=== PATIENT | female | born 1960 ===

== ENCOUNTER 2020-09-08 09:38 | Emergency (ER) | payer MEDICAID, SELFPAY ==
--- NOTE | 2020-09-08 | CT_ITS ---
EXAMINATION: CT ABDOMEN AND PELVIS WITHOUT CONTRAST CLINICAL INFORMATION: Left-sided back and flank pain. Evaluate for mass, stones, fracture. COMPARISON: None TECHNIQUE: Multidetector volumetric imaging was performed from the superior aspect of the liver through the pubic symphysis. Sagittal and coronal reformatted images were obtained on the technologist's workstation. This CT examination was performed using dose optimization techniques as appropriate, variously including the following: *Automated exposure control *Adjustment of mA and/or kV according to patient size (this includes techniques or standardized protocols for targeted exams where dose is matched to indication/reason for exam; i.e. extremities or head) *Use of iterative reconstruction technique DLP: 286 mGy-cm FINDINGS: LUNG BASES: Mild cylindrical bronchiectasis in the visualized lower lobes. There are mild centrilobular groundglass opacities (i.e., mild inflammatory changes) in the the visualized bases. No pleural effusion. There appears to be an old calcified granuloma in the lateral right lower lobe. LIVER: The liver has normal size, shape, and attenuation. GALLBLADDER AND BILIARY TREE: No abnormalities. No radiopaque gallstones, wall thickening or pericholecystic fluid. No bile duct dilatation. PANCREAS: Unremarkable. SPLEEN: Unremarkable. ADRENAL GLANDS: Unremarkable. KIDNEYS AND URETERS: The kidneys are normal in size. No hydroureteronephrosis, urolithiasis or perinephric edema. No evidence of renal mass. BOWEL AND PERITONEUM: Stomach is unremarkable. No dilated loops of bowel. The appendix is is not identified. However, no inflammatory changes in the right lower quadrant. No overt bowel wall thickening or mesenteric fat stranding. No ascites or pneumoperitoneum. ABDOMINAL WALL: Unremarkable. LYMPH NODES: No pathologic sized lymph nodes in the abdomen or pelvis. No inguinal lymphadenopathy. VASCULATURE: There is scattered atherosclerotic calcification of the abdominal aorta and iliac arteries without aneurysm. No retroperitoneal hematoma. Inferior vena cava is normal for a noncontrast examination. BLADDER AND PELVIC VISCERA: The urinary bladder is well distended and has normal wall thickness. No noncontrast imaging evidence of bladder mass or calculus. The uterus is anteflexed and without evidence of mass. In the right adnexal area, there is a cystic structure containing central thin septation that is somewhat elongated in its AP dimension, and could represent an old hydrosalpinx or ovarian cyst. This cystic structure measures approximately 4 cm transverse, 7.3 cm AP and 5.5 cm craniocaudal. No pelvic free fluid. SKELETAL: The visualized lower thoracic and lumbar vertebra have normal height and alignment. Mild spondylosis of the visualized lower thoracic and mid to upper lumbar spine. L5-S1 degenerative disc disease as manifest by loss of disc height, vacuum disc phenomenon, endplate sclerosis and osteophyte formation. There is a broad disc bulge L5-S1, and there is right worse than left neural foraminal stenosis at L5-S1. The visualized lower ribs of the chest are intact. No left-sided rib fracture. IMPRESSION: * No acute findings in the abdomen or pelvis. No evidence of urolithiasis or urinary tract obstruction. * Atherosclerotic calcification of abdominal aorta without aneurysm. * No fracture or malalignment of the degenerated lumbar spine. * There is a 4 x 7.3 x 5.5 cm cystic structure of the right adnexa that has a thin septation. This is likely an ovarian cyst, although an old hydrosalpinx may be considered, as well. Given that the cyst is greater than than 7 cm in its maximum dimension, recommend further characterization with pelvis MR imaging without and with IV contrast and/or pelvic ultrasound.
[2020-09-08 09:50] VITALS: BP 162/80; PULSE 68; RESP 18; TEMP 35.7; O2SAT 99; BMI 19.1
[2020-09-08 10:00] VITALS: BP 162/80; PULSE 68; RESP 18; TEMP 35.7; O2SAT 99
[2020-09-08] MEDS: Ketorolac Tromethamine 30 MG/ML VIAL IM (10:19)
[2020-09-08] MEDS: oxyCODONE HCl Immed Release 5 MG TABLET PO ×2 (10:19→13:00)
[2020-09-08] MEDS: Acetaminophen 325 MG TABLET 650 MG PO (10:20)
--- NOTE | 2020-09-08 10:45 | ED_ITS ---
HPI - Back Pain/Injury General Chief Complaint: Back Pain/Injury Stated Complaint: back pain Time Seen by Provider: 09/08/20 10:02 History of Present Illness HPI Narrative: patient complains of left-sided back pain radiating down the leg and to left groin, for 3-4 days, no injury, pain is getting worse, she has never had this pain before, pain is worse with movement, pain is moderate, the pain does radiate down the left leg, no numbness no weakness no changes in bowel or bladder no burning with urination no fever Related Data Previous Rx's Medication Instructions Recorded cyclobenzaprine 5 mg PO TID PRN #14 tab 09/08/20 ibuprofen 400 mg PO Q6H PRN #20 tab 09/08/20 oxycodone 5 mg PO Q6H PRN #20 cap 09/08/20 prednisone 40 mg PO DAILY 4 Days #8 tab 09/08/20 Allergies Allergy/AdvReac Type Severity Reaction Status Date / Time No Known Allergies Allergy Unverified 08/16/20 16:33 Review of Systems Review of Systems: there is no neck pain no chest pain no abdominal pain no shortness of breath no pain with urination or frequency of urination, no numbness no weakness no paresthesias no fever no chills no joint pain no rash PMFSH Past Medical History Source: nursing notes reviewed Medical History (Updated 09/08/20 @ 14:34 by SILVERIO Vincent) No known health problems Social History Social History Smoking Status: Current every day smoker Smoked in Last 30 Days: Yes Use of substances other than those prescribed or required for medical reasons: Yes Substance Use Type: Marijuana Substance Use Frequency: Daily Last Used Substance: Unknown Advance Directives: No Advance Directives Information Provided: No Physical Exam Vital Signs: Vital Signs: Vital Signs Temp Pulse Resp BP Pulse Ox 09/08/20 14:16 97.6 F 60 18 163/70 H 97 09/08/20 10:00 96.2 F L 68 18 162/80 H 99 09/08/20 09:50 96.2 F L 68 18 162/80 H 99 Body Mass Index 19.1 patient is A&O x3, no acute distress but uncomfortable The neck is supple and nontender The chest is clear to auscultation bilaterally There is no chest wall tenderness The abdomen is soft and nontender The back has left-sided lower lumbar tenderness and flank tenderness Extremities no edema, full range of motion x4 Neuro exam is A&O x3 no numbness no weakness motor strength is 5/5 x4 and gait is normal Course Course Course Narrative: patient's pain was very improved after analgesics CT scan had no evidence of aortic aneurysm, no kidney stones no stress fractures no compression fractures There was incidental finding of a 5.5 cm cystic structure of the right adnexa it said likely an ovarian cyst but because of the size the radiologist recommended further imaging as an outpatient and patient will follow with dope sprayer and primary doctor Patient has not seen a doctor in many years and has no dope sprayer or primary care doctor I called gynecology here and they advised for possible malignancy to contact [facility] bend up where there is bend up Oncology if needed I spoke to Dr. Brown of [facility] gynecology who asked us to get tumor marker blood test here and that they could follow the patient at [facility] gynecology Patient understood all this, she was also advised that her blood pressure was e levated and she should get a primary care doctor, and she was much more comfortable after treatment in the ER for her presenting complaint of sciatica on the left side MDM - Back Pain/Injury Lab Data Labs: Lab Results 09/08/20 Range/Units 14:41 Carcinoembryonic Ag 2.30 mg/mL Discharge Plan Discharge Clinical Impression: Mass Sciatica Qualifiers: Laterality: left Qualified Code(s): M54.32 - Sciatica, left side Patient Disposition: Home, Self-Care Additional Instructions: our CT scan showed a cystic mass on the right side We are not sure if it is benign or malignant so we called the gynecology department at [facility] and I spoke with Dr. brown, who said they can follow you at [facility] for further evaluation to rule out any chance of cancer They should call you by Thursday or Thursday next week if they have not called you then you call them at [phone] For your back pain on the left side radiating to her leg we are treating with prednisone which may reduce inflammation around the nerve and pain killer and muscle relaxer Your blood pressure was elevated, best advice is get a primary care doctor and a home blood pressure cuff and keep a record of her readings so when you go to the doctor he can help determine if you have hypertension or if was just elevated today in the ER Return any time any worse condition or any concerns Prescriptions: New prednisone 20 mg tablet 40 mg PO DAILY 4 Days Qty: 8 RF: 0 cyclobenzaprine 5 mg tablet 5 mg PO TID PRN (Reason: muscle spasm) Qty: 14 RF: 0 oxycodone 5 mg capsule 5 mg PO Q6H PRN (Reason: pain) Qty: 20 RF: 0 ibuprofen 400 mg tablet 400 mg PO Q6H PRN (Reason: pain) Qty: 20 RF: 0 Stand Alone Forms: Work/School Release Interventions: ED Discharge Assessment Last Done: 09/08/20 14:54 Discharge Date/Time: 09/08/20 14:55
[2020-09-08 14:16] VITALS: BP 163/70; PULSE 60; RESP 18; TEMP 36.4; O2SAT 97
[2020-09-08] MEDS: predniSONE 20 MG TABLET 60 MG PO (14:50)
[2020-09-10 17:21] LABS: CA-125 6 U/mL (<35)
== END 2020-09-08 14:55 | disposition home or self-care (01) ==
PROVIDERS: Physician Assistant Medical; Emergency Provider Emergency Medicine
DX: M54.32 Sciatica, left side (principal); F17.200 Nicotine dependence, unspecified, uncomplicated; F12.90 Cannabis use, unspecified, uncomplicated; Z79.899 Other long term (current) drug therapy; Z71.6 Tobacco abuse counseling
CPT/HCPCS: 74176; 82378; 86304; 96372; 99284; J1885

== ENCOUNTER 2022-12-20 12:45 | Emergency (ER) | payer MEDICAID, SELFPAY ==
--- NOTE | ~2022-12-20 | XR_ITS ---
EXAMINATION: XR SHOULDER, RIGHT CLINICAL INFORMATION: Pain. COMPARISON: Radiograph of the right shoulder 01/13/2013. TECHNIQUE: Four views of the right shoulder. FINDINGS: The bones and soft tissues are normal. No fracture. Glenohumeral and acromioclavicular alignment is anatomic with normal joint space. No abnormal soft tissue calcifications. XR/XR shoulder RT min 2V IMPRESSION: Normal right shoulder.
[2022-12-20 12:53] VITALS: BP 70/47; PULSE 79; RESP 16; TEMP 36.5; O2SAT 97; BMI 22.6
--- NOTE | 2022-12-20 12:53 | ED_ITS ---
HPI - Extremity Problem General Chief complaint: Extremity Problem <Chen Stewart CNP - Last Filed: 12/20/22 12:56> Stated complaint: r arm pain no known inj <Chen Stewart CNP - Last Filed: 12/20/22 12:56> Time Seen by Provider: 12/20/22 13:28 <Chen Stewart CNP - Last Filed: 12/20/22 12:56> History of Present Illness HPI Narrative: Patient complains of right shoulder pain which began 3 days ago and is worse with movement, there is no associated trauma no fever no injury no numbness or weakness no skin rash no other joint pains or swelling, no chest pains no shortness of breath <SILVERIO Vincent - Last Filed: 12/20/22 17:15> Related Data Home medications: Previous Rx's Medication Instructions Recorded cyclobenzaprine 5 mg tablet 5 mg PO TID PRN muscle spasm #14 09/08/20 tabs ibuprofen 400 mg tablet 400 mg PO Q6H PRN pain #20 tabs 09/08/20 oxycodone 5 mg capsule 5 mg PO Q6H PRN pain #20 caps 09/08/20 prednisone 20 mg tablet 40 mg PO DAILY 4 days #8 tabs 09/08/20 acetaminophen 325 mg capsule 650 mg PO Q6H PRN pain #30 caps 12/20/22 ibuprofen 600 mg tablet 600 mg PO Q6H PRN pain #20 tabs 12/20/22 oxycodone 5 mg tablet 5 mg PO Q6H PRN pain #14 tabs 12/20/22 <Chen Stewart CNP - Last Filed: 12/20/22 12:56> Allergies/Adverse reactions: Allergies Allergy/AdvReac Type Severity Reaction Status Date / Time No Known Allergies Allergy Verified 12/20/22 12:53 <Chen Stewatr CNP - Last Filed: 12/20/22 12:56> [facility] Past Medical History Source: nursing notes reviewed <SILVERIO Vincent - Last Filed: 12/20/22 17:15> Medical History: Medical History (Updated 12/20/22 @ 15:21 by SILVERIO Vincent) No known health problems <Chen Stewart CNP - Last Filed: 12/20/22 12:56> Social History Social History: Social History Smoked in Last 30 Days: Yes Use of substances other than those prescribed or required for medical reasons: Yes Substance Use Type: Marijuana Substance Use Frequency: Occasionally Last Used Substance: Days (ago) Advance Directives: No Advance Directives Information Provided: No <Chenmemo Stewart CNP - Last Filed: 12/20/22 12:56> Physical Exam Vital Signs: Vital Signs: Last Vital Signs Temp 98.2 F 12/20/22 14:12 Pulse 69 12/20/22 14:12 Resp 16 12/20/22 14:12 BP 164/71 H 12/20/22 14:12 Pulse Ox 96 12/20/22 14:12 O2 Del Method 12/20/22 14:12 BMI result Body Mass Index 22.6 <Chen Villatoroolimpia Stewart CNP - Last Filed: 12/20/22 12:56> Vital Signs: Last Vital Signs Temp 98.2 F 12/20/22 14:12 Pulse 69 12/20/22 14:12 Resp 16 12/20/22 14:12 BP 164/71 H 12/20/22 14:12 Pulse Ox 96 12/20/22 14:12 O2 Del Method 12/20/22 14:12 BMI result Body Mass Index 22.6 <SILVERIO Vincent - Last Filed: 12/20/22 17:15> General appearance no acute distress The head is normocephalic atraumatic The neck is supple and nontender There is mild right trapezius tenderness Chest clear to auscultation bilateral Chest wall nontender Extremities the right shoulder has tenderness on both anterior and deltoid area, there is no redness no warmth, there is no swelling There is limited range of motion with pain limited extension, limited abduction, full external rotation and internal rotation Patient can partially abduct but reaches a point where it is too pain Elbow of the right arm had full range of motion and no significant tenderness around the elbow The upper arm there was some tenderness along the biceps tendon and muscle but again no redness no swelling no abnormal appearance All skin is normal and neurovascular intact distal with good motor and sensory function Other extremities normal <SILVERIO Vincent - Last Filed: 12/20/22 17:15> Course Course Course Narrative: This is an RME: Additional HPI, ROS, PE not included below will be deferred to primary provider. Patient is a 62 year old female who presents to ED for arm pain. Awoke yesterday morning with right arm pain. Denies any precipitating injury. At first thought that she had slept wrong, but pain progressed throughout the day, and has not improved so she is concerned. Begins at shoulder and extends down to elbow. Did not take any pain medication at home for this. Denies fevers, chills, nausea, vomiting, ABD pain. States pain is made worse with movement, feels stiff. Plan: XR right shoulder <Chen Stewart CNP - Last Filed: 12/20/22 12:56> This is an RME: Additional HPI, ROS, PE not included below will be deferred to primary provider. Patient is a 62 year old female who presents to ED for arm pain. Awoke yesterday morning with right arm pain. Denies any precipitating injury. At first thought that she had slept wrong, but pain progressed throughout the day, and has not improved so she is concerned. Begins at shoulder and extends down to elbow. Did not take any pain medication at home for this. Denies fevers, chills, nausea, vomiting, ABD pain. States pain is made worse with movement, feels stiff. Plan: XR right shoulder X-ray of the shoulder was normal Septic joint very unlikely as no redness no warmth and although range of motion is limited there is still good range of motion on external rotation and abduction No fever no sign of infection no sign of cellulitis Patient likely has some soft tissue inflammation such as tendinitis or bursitis and is referred to orthopedist with clear warnings to come back if the joint gets red or inflamed or if pain gets worse or range of motion gets worse <SILVERIO Vincent - Last Filed: 12/20/22 17:15> Discharge Plan Discharge Clinical Impression: Pain in right shoulder <Chen Stewart CNP - Last Filed: 12/20/22 12:56> Patient Disposition: Home, Self-Care <Chen Stewart CNP - Last Filed: 12/20/22 12:56> Additional Instructions: X-ray was normal, so cause of pain is likely soft tissue such as tendon or ligament or joint inflammation There was no sign of any infection in the shoulder joint now If you develop fever redness or warmth or increased pain in the shoulder or any worse condition or any concerns return to the ER any time for re-evaluation Follow with orthopedist <Chen Stewart CNP - Last Filed: 12/20/22 12:56> Prescriptions: New oxycodone 5 mg tablet 5 mg PO Q6H PRN (Reason: pain) Qty: 14 0RF Rx Instructions: Partial Fill upon patient request. ibuprofen 600 mg tablet 600 mg PO Q6H PRN (Reason: pain) Qty: 20 0RF acetaminophen 325 mg capsule 650 mg PO Q6H PRN (Reason: pain) Qty: 30 0RF No Action prednisone 20 mg tablet 40 mg PO DAILY 4 Days Qty: 8 0RF cyclobenzaprine 5 mg tablet 5 mg PO TID PRN (Reason: muscle spasm) Qty: 14 0RF Rx Instructions: this medication may cause drowsiness, no driving for 8 hours after taking oxycodone 5 mg capsule 5 mg PO Q6H PRN (Reason: pain) Qty: 20 0RF Rx Instructions: this medication causes drowsiness, no driving for 8 hours after taking ibuprofen 400 mg tablet 400 mg PO Q6H PRN (Reason: pain) Qty: 20 0RF <Chen Stewart CNP - Last Filed: 12/20/22 12:56> Referrals: Gee Graham MD [Physician] - (Right shoulder tendinitis) <Chen Stewart CNP - Last Filed: 12/20/22 12:56> Stand Alone Forms: Work/School Release <Chen Stewart CNP - Last Filed: 12/20/22 12:56> Interventions: ED Discharge Assessment Last Done: 12/20/22 15:44 <Chen Stewart CNP - Last Filed: 12/20/22 12:56> Discharge Date/Time: 12/20/22 15:45 <Chen Stewart CNP - Last Filed: 12/20/22 12:56>
[2022-12-20 14:12] VITALS: BP 164/71; PULSE 69; RESP 16; TEMP 36.8; O2SAT 96
== END 2022-12-20 15:45 | disposition home or self-care (01) ==
PROVIDERS: Emergency Provider Emergency Medicine
DX: M25.511 Pain in right shoulder (principal); F12.90 Cannabis use, unspecified, uncomplicated
CPT/HCPCS: 73030; 99283; 99284

== ENCOUNTER 2023-07-16 18:19 | Outpatient (REF) | payer MEDICAID, SELFPAY ==
[2023-07-16 19:26] LABS: Influenza A PCR NEGATIVE (Negative); Influenza B PCR NEGATIVE (Negative); Resp Syncy Virus RNA Qual PCR NEGATIVE (Negative); SARS COV2 PCR INHOUSE NEGATIVE (Negative)
== END 2023-07-16 18:20 | disposition home or self-care (01) ==
LOC: HO.HHCLNP 18:19
PROVIDERS: Visit Provider Student in an Organized Health Care Education/Training Program
DX: Z20.822 Contact with and (suspected) exposure to COVID-19 (principal); J06.9 Acute upper respiratory infection, unspecified
CPT/HCPCS: 0241U

== ENCOUNTER 2023-09-22 18:40 | Outpatient (REF) | payer MEDICAID, SELFPAY ==
[2023-09-22 19:24] LABS: Influenza A PCR NEGATIVE (Negative); Influenza B PCR NEGATIVE (Negative); Resp Syncy Virus RNA Qual PCR NEGATIVE (Negative); SARS COV2 PCR INHOUSE NEGATIVE (Negative)
== END 2023-09-22 18:41 | disposition home or self-care (01) ==
LOC: HO.HHCLNP 18:40
PROVIDERS: Visit Provider Emergency Medicine
DX: J06.9 Acute upper respiratory infection, unspecified (principal); Z11.52 Encounter for screening for COVID-19
CPT/HCPCS: 0241U

== ENCOUNTER 2024-08-05 17:44 | Outpatient (REF) | payer SELFPAY | END 2024-08-05 17:45 | disposition home or self-care (01) | LOC: HO.HHCLNP 17:44 | PROVIDERS: Visit Provider Registered Nurse | DX: J02.9 Acute pharyngitis, unspecified (principal) | CPT/HCPCS: 87070 ==